=== PATIENT | female | born 2000 | race Asian ===

== ENCOUNTER 2020-06-28 16:59 | Inpatient (IN) | payer OTHER ==
[2020-06-28 17:53] VITALS: BMI 33.6
[2020-06-28 18:19] LABS: BASO % 0.5 % (0-2.0); EOS % 1.8 % (0-4.5); HEMATOCRIT 38.3 % (32.4-45.2); HEMOGLOBIN 13.2 GM/dL (10.7-15.3); LYMPH % 26.9 % (8-40); MCH 30.2 pg (25.7-33.7); MCHC 34.5 g/dl (32.0-36.0); MEAN CELL VOLUME 87.4 fl (80-96); MEAN PLT VOLUME 8.9 fl (7.5-11.1); MONO % 5.4 % (3.8-10.2); NEUT % 65.4 % (42.8-82.8); PLATELET COUNT 200 K/MM3 (134-434); RBC 4.38 M/mm3 (3.60-5.2); RDW 13.7 % (11.6-15.6); WHITE BLOOD COUNT 10.7 K/mm3 (4.0-10.0)
[2020-06-28 18:22] LABS: INR 1.01 (0.83-1.09); PROTHROMBIN TIME (PATIENT) 11.9 SEC (9.7-13.0)
[2020-06-28 18:49] LABS: BLOOD UREA NITROGEN 6.6 mg/dL (7-18); CALCIUM 8.8 mg/dL (8.5-10.1); CREATININE 0.5 mg/dL (0.55-1.3); POTASSIUM 3.5 mmol/L (3.5-5.1)
[2020-06-28] MEDS ORDERED: PROMETHAZINE HCL 25 MG/1 ML VIAL IVPUSH ONE (20:36)
[2020-06-28] MEDS ORDERED: BUTORPHANOL TARTRATE 1 MG/ML VIAL IVPB ONE (20:45)
--- NOTE | 2020-06-28 21:25 | HP ---
Past Medical History - Primary Care Physician PCP:: Dorcas Coronado - Admission Chief Complaint: Teen . 39 week. obesity. macrosomia History of Present Illness: 19 yo EDC 06/2020 admitted for induction of labor + AFM NO BLEEDING NO LAB OR History Source: Patient Limitations to Obtaining History: No Limitations - Past Medical History ...: 1 ...Para: 0 ...Term: 0 ...: 0 ...Spon : 0 ...Induced : 0 ...Living Children: 0 ...Multiple Gestation: 0 ...LMP: 09/22/19 ... Weeks Gestation by Dates: 40.0 ...EDC by Dates: 06/28/20 ...EDC by Sono: 06/28/20 - Past Surgical History Past Surgical History: Yes: None Hx Myomectomy: No Hx Transabdominal Cerclage: No - Smoking History Smoking history: Never smoked Have you smoked in the past 12 months: No Aproximately how many cigarettes per day: 0 - Alcohol/Substance Use Hx Alcohol Use: No History of Substance Use: reports: None - Social History History of Recent Travel: No Home Medications - Allergies Allergies/Adverse Reactions: Allergies Allergy/AdvReac Type Severity Reaction Status Date / Time No Known Allergies Allergy Verified 06/28/20 17:35 - Home Medications Home Medications: Ambulatory Orders Pnv No.95/Ferrous Fum/Folic AC [ Formula] 1 each PO DAILY 06/28/20 Review of Systems - Review of Systems Constitutional: reports: No Symptoms Eyes: reports: No Symptoms HENT: reports: No Symptoms Neck: reports: No Symptoms Cardiovascular: reports: No Symptoms Respiratory: reports: No Symptoms Gastrointestinal: reports: No Symptoms Genitourinary: reports: No Symptoms Breasts: reports: No Symptoms Reported Musculoskeletal: reports: No Symptoms Integumentary: reports: No Symptoms Neurological: reports: No Symptoms Endocrine: reports: No Symptoms Hematology/Lymphatic: reports: No Symptoms Psychiatric: reports: No Symptoms Physical Exam - Maternity Vital Signs: Vital Signs Temperature 98.2 F 06/28/20 17:44 Pulse Rate 82 06/28/20 19:00 Respiratory Rate 18 06/28/20 19:00 Blood Pressure 120/59 L 06/28/20 19:00 O2 Sat by Pulse Oximetry (%) 99 06/28/20 17:00 Constitutional: Yes: Well Nourished, No Distress Neck: Yes: WNL Cardiovascular: Yes: WNL Breast(s): Yes: WNL - Abdominal Exam/OB Fundal Height: 39 Number of Fetuses: Single Presentation: Vertex Contractions: No Monitor Mode: External Heart Rate Location: [facility] Category: I - Vaginal Exam/OB Speculum Exam: No Dilatation (cm): 1 Effacement (%): 80 Amniotic Membrane Status: Intact Presentation: Vertex/Position - Physical Exam Psychiatric: Yes: WNL, Alert, Oriented - Labs Lab Results: CBC, BMP 06/28/20 17:00 06/28/20 17:00 Hemorrhage Risk Assessment - Risk Factors Risk Score: 0 Risk Level: Low Risk Problem List - Problems (1) Obesity affecting Code(s): O99.210 - OBESITY COMPLICATING , UNSPECIFIED TRIMESTER (2) High risk teen in third trimester Code(s): O09.893 - SUPERVISION OF OTHER HIGH RISK PREGNANCIES, THIRD TRIMESTER (3) Macrosomia affecting management of mother in third trimester Code(s): O36.63X0 - MATERNAL CARE FOR EXCESS GROWTH, THIRD TRIMESTER, UNSP Qualifiers: Fetus number: single or unspecified fetus Qualified Code(s): O36.63X0 - Maternal care for excessive growth, third trimester, not applicable or unspecified Assessment/Plan IUP at 40 week teen cat 1 obesity Plan Cervidil placed
[2020-06-29] MEDS: ELECTROLYTE-148 SOLN 1,000 ML IV SCH (07:00)
[2020-06-29] MEDS ORDERED: OXYTOCIN 30 UNITS in 0.9% NS 30 UNIT/500 ML INFUS.BAG IVPB ONE (09:07)
--- NOTE | 2020-06-29 10:03 | PN ---
Ante-Partal Exam - Subjective Subjective: Pt with cramping with cervidil Vital Signs: Vital Signs Temperature 97.8 F 06/29/20 08:00 Pulse Rate 80 06/29/20 09:00 Respiratory Rate 18 06/29/20 09:00 Blood Pressure 116/51 L 06/29/20 09:00 O2 Sat by Pulse Oximetry (%) 99 06/28/20 17:00 Bleeding: No Headache: No Visual changes: No Right upper quadrant pain: No - Contractions Contractions: Yes Monitor Mode: External - Exam during Labor Variability: Moderate Heart Rate Location: [facility] Category: I Monitor Decelerations: None Exam: Vaginal Dilatation (cm): 2 Effacement (%): 80 Amniotic Membrane Status: Intact Presentation: Vertex Station: -1 - Intrapartum Hemorrhage Risk Risk Score: 0 Risk Level: Low Risk - Assessment/Plan Assessment/Plan: cervidil induction SV1 good casanova Pitocin augment
[2020-06-29] MEDS ORDERED: OXYTOCIN 30 UNITS in 0.9% NS 30 UNIT/500 ML INFUS.BAG IVPB SCH (10:15)
--- NOTE | 2020-06-29 10:23 | PN ---
Ante-Partal Exam - Subjective Vital Signs: Vital Signs Temperature 97.8 F 06/29/20 08:00 Pulse Rate 80 06/29/20 09:00 Respiratory Rate 18 06/29/20 09:00 Blood Pressure 116/51 L 06/29/20 09:00 O2 Sat by Pulse Oximetry (%) 99 06/28/20 17:00 - Contractions Contractions: Yes - Exam during Labor Variability: Moderate Heart Rate Location: [facility] Category: II Monitor Decelerations: Prolonged - Assessment/Plan Assessment/Plan: Cat 2 Prolonged Decel DC pitocin will observe and restart if cat 1
[2020-06-29] MEDS ORDERED: BUPIVACAINE HCL/PF 0.25% (2.5MG/ML) 10 ML VIAL ONE (17:30)
[2020-06-29] MEDS ORDERED: PCA PUMP NR ONE (17:50)
[2020-06-29] MEDS ORDERED: FENTANYL/BUPIVACAINE/NS/PF - PCEA - 50 ML DISP.SYRIN EP ONE (17:51)
[2020-06-29] MEDS ORDERED: NALOXONE HCL 0.4 MG/ML VIAL IVPUSH PRN (18:00)
[2020-06-29] MEDS ORDERED: FENTANYL/BUPIVACAINE/NS/PF - PCEA - 50 ML DISP.SYRIN EP SCH (18:00)
--- NOTE | 2020-06-29 20:47 | PN ---
Ante-Partal Exam - Subjective Vital Signs: Vital Signs Temperature 98.4 F 06/29/20 20:00 Pulse Rate 64 06/29/20 17:00 Respiratory Rate 18 06/29/20 17:00 Blood Pressure 121/66 06/29/20 17:00 O2 Sat by Pulse Oximetry (%) 99 06/28/20 17:00 - Exam during Labor Variability: Moderate Category: I Monitor Accelerations: Present Monitor Decelerations: None Exam: Vaginal Dilatation (cm): 2 Effacement (%): 70 Amniotic Membrane Status: Ruptured Amniotic Fluid: Clear Presentation: Vertex Station: -1 - Intrapartum Hemorrhage Risk Risk Score: 0 Risk Level: Low Risk - Assessment/Plan Assessment/Plan: Cat 1 Macrosomia Teen 40 week Plan pit may epidural
--- NOTE | 2020-06-29 20:52 | PN ---
Ante-Partal Exam - Subjective Subjective: Pt prolonged decel Pt Sp epidural Vital Signs: Vital Signs Temperature 98.4 F 06/29/20 20:00 Pulse Rate 64 06/29/20 17:00 Respiratory Rate 18 06/29/20 17:00 Blood Pressure 121/66 06/29/20 17:00 O2 Sat by Pulse Oximetry (%) 99 06/28/20 17:00 Bleeding: No Headache: No Visual changes: No Right upper quadrant pain: No - Contractions Intensity: Moderate Monitor Mode: External - Exam during Labor Heart Rate: 140 Variability: Moderate Heart Rate Location: [facility] Category: II Monitor Accelerations: Present Monitor Decelerations: Prolonged Exam: Vaginal Dilatation (cm): 2 Effacement (%): 70 Amniotic Membrane Status: Ruptured Amniotic Fluid: Clear Presentation: Vertex Station: -1 - Intrapartum Hemorrhage Risk Risk Score: 0 Risk Level: Low Risk - Assessment/Plan Assessment/Plan: CPD Cat 2 40 week teen obesity Plan Primary Section
[2020-06-29] MEDS ORDERED: ONDANSETRON 4 MG/2 ML VIAL IVPUSH PRN (22:35)
[2020-06-29] MEDS ORDERED: LIDO 2%/EPI 1:200000 PRESRVFRE (20 ML SDVIAL) ONE (23:17)
[2020-06-30] MEDS ORDERED: oxyCODONE HCL 5 MG TABLET PO PRN ×2 (00:20)
[2020-06-30] MEDS ORDERED: METHYLERGONOVINE MALEATE 0.2 MG/1 ML AMP IM PRN (00:20)
[2020-06-30] MEDS ORDERED: BENZOCAINE 20% 57 GM BOTTLE TP PRN (00:20)
[2020-06-30] MEDS ORDERED: SENNOSIDES/DOCUSATE COMBO (SENNA PLUS) TABLET (UD) PO PRN (00:20)
[2020-06-30] MEDS ORDERED: IBUPROFEN 800 MG/8 ML IJ IVPB PRN (00:20)
[2020-06-30] MEDS ORDERED: WITCH HAZEL 50% (TUCKS) 40 PAD/JAR PAD TP PRN (00:20)
--- NOTE | 2020-06-30 00:20 | OP ---
Operative Note - Note: Operative Date: 06/30/20 Pre-Operative Diagnosis: Falilure to progress. CPD. macrosomia. iup at 40 week Operation: Primary low transverse Section Findings: Live infant Post-Operative Diagnosis: Same as Pre-op Surgeon: Dorcas Coronado Assistant Fitness Manager: Apolinar Graham Anesthesia: Epidural Estimated Blood Loss (mls): 500 Operative Report Dictated: Yes
[2020-06-30 00:43] LABS: CORD HCO3 21.5 mmHg (20-29); CORD PCO2 55.3 mmHg (30-78); CORD pH 7.207 (7.14-7.44)
[2020-06-30 00:46] LABS: CORD HCO3 22.8 mmHg (20-29); CORD PCO2 50.7 mmHg (30-78); CORD pH 7.271 (7.14-7.44)
[2020-06-30] MEDS ORDERED: OXYTOCIN 20 UNITS in 0.9% NS 20 UNIT/1,000 ML INFUS.BAG IV ONE ×2 (02:02→10:31)
[2020-06-30] MEDS: OXYTOCIN 20 UNITS in 0.9% NS 20 UNIT/1,000 ML INFUS.BAG IV SCH (02:16)
--- NOTE | 2020-06-30 08:36 | PN ---
Progress Note (short form) - Note Progress Note: Anesthesia postop note 19 y/o F s/p spinal anesthesia/duramorph for section POD#1, vss, aaox3, pain well controlled, sensory motor intact distally No anesthesia complications.
[2020-06-30] MEDS: IBUPROFEN 600 MG TABLET (FP) PO PRN ×3 (08:50→21:59)
[2020-06-30] MEDS ORDERED: IBUPROFEN 600 MG TABLET (FP) PO ONE (09:47)
[2020-06-30] MEDS ORDERED: ACETAMINOPHEN 325 MG TABLET (FP) ONE (09:47)
[2020-06-30] MEDS ORDERED: PRENATAL VITAMINS W/ FOLIC ACID TABLET (FP) PO ONE (09:55)
[2020-06-30] MEDS ORDERED: FERROUS SO4 325 MG TABLET (FP) ONE (09:55)
[2020-06-30] MEDS: FERROUS SO4 325 MG TABLET (FP) PO SCH ×2 (09:57→21:59)
[2020-06-30] MEDS: PRENATAL VITAMINS W/ FOLIC ACID TABLET (FP) PO SCH (09:57)
[2020-06-30] MEDS: ACETAMINOPHEN 325 MG TABLET (FP) PO PRN ×3 (09:58→22:00)
[2020-06-30] MEDS: SIMETHICONE 80 MG TAB.CHEW (FP) PO PRN ×2 (14:41→21:59)
--- NOTE | 2020-06-30 16:38 | OP ---
DATE OF OPERATION: 06/29/2020 PREOPERATIVE DIAGNOSIS: Failure to progress, chronic kidney disease, and size greater than dates intrauterine at 40 weeks. OPERATION: Low transverse section. POSTOPERATIVE DIAGNOSIS: Live infant. SURGEON: Frankie Coronado MD. CANE CUTTER: DREA Navarro. MD unavailable. ANESTHESIA: Epidural. PROCEDURE: Patient was taken to the operating room, placed in supine position. Prepped and draped in usual sterile fashion. A Pfannenstiel skin incision was made with the patient's scar. Cautery was then used to go through layers of abdominal wall to the level of the fascia. Fascia was cut in the midline and cardia was then used to open the fascia in a smiley fashion. Levi was then used to bluntly and sharply dissect the rectus muscles off the fascia. Muscle was split in the midline. Peritoneal cavity was entered up and down with bladder retractor then placed. Vesicouterine reflexion then entered and bladder was bluntly dissected out of the upper field. Scalpel was then used to make a low transverse uterine incision. Incision was carried upwards with the use of bandage scissors. A live infant was delivered in OT position. Nose to mouth suction performed, shoulders were delivered without difficulty. Cord was clamped and cut. Cord blood obtained. . Placenta was manually extracted from uterus. Uterus exteriorized and cleaned with clean lap pads. Uterine incision then closed using 0 Vicryl suture, 1st layer continuous and locking, 2nd layer imbricating 1st layer. Hemostasis was achieved using [id number] sutures. Tubes and ovaries noted to be normal. Abdominal cavity was then cleaned with clean lap pads. Uterus interiorized. Abdominal sweep done. Peritoneum closed with 0 Biosyn suture in a continuous fashion. Muscles were approximated in the midline. Fascia then closed using 0 Vicryl suture in 2 parts. Subcutaneous was approximated using 0 Biosyn suture and interrupted sutures. Skin was then closed using 3-0 Vicryl in a subcuticular fashion. The wound was washed and dressed. Patient tolerated procedure well. Estimated blood loss 500 mL. FRANKIE CORONADO M.D. [id number]
[2020-06-30] MEDS: ELECTROLYTE-148 SOLN 1,000 ML IV SCH (17:11)
[2020-07-01] MEDS ORDERED: BISACODYL 10 MG SUPP.RECT RC PRN (00:20)
[2020-07-01] MEDS: OXYTOCIN 20 UNITS in 0.9% NS 20 UNIT/1,000 ML INFUS.BAG IV SCH (07:27)
[2020-07-01] MEDS: SIMETHICONE 80 MG TAB.CHEW (FP) PO PRN ×2 (08:08→16:09)
[2020-07-01] MEDS: IBUPROFEN 600 MG TABLET (FP) PO PRN ×2 (08:08→16:09)
[2020-07-01] MEDS: ACETAMINOPHEN 325 MG TABLET (FP) PO PRN ×2 (08:08→16:10)
[2020-07-01 08:33] LABS: BASO % 0.3 % (0-2.0); EOS % 1.2 % (0-4.5); HEMATOCRIT 37.8 % (32.4-45.2); HEMOGLOBIN 12.8 GM/dL (10.7-15.3); MCH 30.5 pg (25.7-33.7); MEAN CELL VOLUME 89.8 fl (80-96); MEAN PLT VOLUME 9.2 fl (7.5-11.1); MONO % 3.9 % (3.8-10.2); NEUT % 80.6 % (42.8-82.8); PLATELET COUNT 163 K/MM3 (134-434); RBC 4.21 M/mm3 (3.60-5.2); RDW 14.1 % (11.6-15.6); WHITE BLOOD COUNT 13.2 K/mm3 (4.0-10.0)
[2020-07-01] MEDS: PRENATAL VITAMINS W/ FOLIC ACID TABLET (FP) PO SCH (09:52)
[2020-07-01] MEDS: FERROUS SO4 325 MG TABLET (FP) PO SCH ×2 (09:52→22:09)
[2020-07-01] MEDS: ELECTROLYTE-148 SOLN 1,000 ML IV SCH (19:48)
[2020-07-02] MEDS: ACETAMINOPHEN 325 MG TABLET (FP) PO PRN ×2 (02:00→13:01)
[2020-07-02] MEDS: IBUPROFEN 600 MG TABLET (FP) PO PRN ×2 (02:00→13:02)
[2020-07-02] MEDS: SIMETHICONE 80 MG TAB.CHEW (FP) PO PRN ×2 (02:01→13:01)
--- NOTE | 2020-07-02 06:45 | DS ---
Physical Exam-COMMUNITY RELATIONS MANAGER Vital Signs: Vital Signs Temperature 98.5 F 07/01/20 21:09 Pulse Rate 83 07/01/20 21:09 Respiratory Rate 18 07/01/20 21:09 Blood Pressure 126/82 07/01/20 21:09 O2 Sat by Pulse Oximetry (%) 95 07/01/20 21:09 Constitutional: Yes: Well Nourished, No Distress Gastrointestinal: Yes: WNL ....Post : Yes: Uterus firm, Uterus non-tender Breast(s): Yes: WNL Musculoskeletal: Yes: WNL Extremities: Yes: WNL Wound/Incision: Yes: Clean/Dry, Well Approximated Labs: CBC, BMP 07/01/20 08:05 06/28/20 17:00 Delivery - Delivery Type of Anesthesia: Epidural Episiotomy/Laceration: None EBL (cc): 500 Delivery, Single - Stages of Labor Date 1st Stage Initiatied: 06/29/20 Time 1st Stage Initiated: 17:00 Date of Delivery: 06/29/20 Time of Delivery: 23:42 Time Placenta Delivered: 23:43 - Condition of Microbiology Technologist/Manager Product Management Present: Yes Name: Zuly Andrew Gender: Male Weight: 8 lb 2 oz Position: Left, OA Total Hours ROM (Hrs/Mins): 6H 42M - 1 Minute Total Score: 9 5 Minutes Total Score: 9 - Branch Feeding Plan Initial Plan: Elected not to breastfeed exclusively throughout hospitalization Discharge Summary Problems reviewed: Yes Reason For Visit: INDUCTION Current Active Problems High risk teen in third trimester (Acute) Macrosomia affecting management of mother in third trimester (Acute) Obesity affecting (Acute) Procedures: Principal: Low transverse section Hospital Course: unremarkable Condition: Good - Instructions Referrals: Dorcas Coronado MD [Staff Physician] - Disposition: HOME - Home Medications Comprehensive Discharge Medication List: Ambulatory Orders Pnv No.95/Ferrous Fum/Folic AC [ Formula] 1 each PO DAILY 06/28/20
[2020-07-02 09:26] VITALS: BP 130/78; PULSE 82; TEMP 98.2
[2020-07-02] MEDS: PRENATAL VITAMINS W/ FOLIC ACID TABLET (FP) PO SCH (09:50)
[2020-07-02] MEDS: FERROUS SO4 325 MG TABLET (FP) PO SCH (09:50)
--- NOTE | 2020-07-06 17:48 | PATH ---
Surgical Pathology Report Patient Name: PREET LAWSON Med. Rec. #: [id number] /Age/Gender: 2000 (Age: 19) / F Account: [id number] Location: [address] [place] [address] OBG/MANAGER METAL Taken: 06/29/2020 Received: 06/30/2020 Reported: 07/06/2020 Physicians: Dorcas Coronado M.D. Specimen(s) Received PLACENTA Clinical History 40 weeks gestation, failure to progress in labor, CPD Final Diagnosis PLACENTA: THIRD TRIMESTER PLACENTA WITH FOCAL INCREASED PERIVILLOUS FIBRIN DEPOSITION. TRIVASCULAR CORD. MEMBRANES WITH NO DIAGNOSTIC ABNORMALITIES. Electronically Signed Pramod Dozier M.D. Gross Description The specimen is received fresh labeled placenta and is a 400 gram, 17.0 x 17.0 x 2.5 cm. placenta with attached membranes and umbilical cord. The attached membranes are mazariegos, translucent with focal opacities and insert marginally. The umbilical cord measures 11 cm. in length and averages 1.2 cm. in diameter. The cord inserts eccentrically, 4 cm. to the nearest margin. No true knots or strictures are identified. Cut surface of the umbilical cord reveals 3 vessels. The surface is mcnulty-blue with minimal fibrin deposition and appropriate caliber vessels. The maternal surface is red-brown with focal defects. Sectioning reveals red-brown, spongy parenchyma. No lesions are identified. Family Sociologist sections are submitted in three cassettes as follows: 1- membrane rolls and umbilical cord; 2-3- full thickness sections of placenta. 07/04/2020 [facility]07/04/2020
== END 2020-07-02 14:30 | disposition home or self-care (01) | DRG 787 ==
LOC: JLDR 16:59 → J3N 06-30 11:21
PROVIDERS: ADMIT Obstetrics & Gynecology; ATTEND Obstetrics & Gynecology
PROC: 3E0P7VZ Introduction of Hormone into Female Reproductive, Via Natural or Artificial Opening (ICD-10-PCS; principal; 2020-06-28)
PROC: 10D00Z1 Extraction of Products of Conception, Low, Open Approach (ICD-10-PCS; 2020-06-29)
DX: O82 Encounter for cesarean delivery without indication (principal); O26.833 Pregnancy related renal disease, third trimester; O48.0 Post-term pregnancy; O76 Abnormality in fetal heart rate and rhythm complicating labor and delivery; Z3A.40 40 weeks gestation of pregnancy; O32.4XX0 Maternal care for high head at term, not applicable or unspecified; Z37.0 Single live birth; O99.214 Obesity complicating childbirth; E66.9 Obesity, unspecified; O66.2 Obstructed labor due to unusually large fetus; O09.893 Supervision of other high risk pregnancies, third trimester; N18.9 Chronic kidney disease, unspecified; Z87.09 Personal history of other diseases of the respiratory system
CPT/HCPCS: 36415; 36600; 80048; 82803; 85025; 85610; 85730; 86780; 86850; 86900; 86901; 88307-TC; U0003

== ENCOUNTER 2021-03-07 09:32 | Emergency (ER) | payer OTHER ==
[2021-03-07 09:44] VITALS: BP 132/81; PULSE 78; TEMP 98.5; BMI 25.6
[2021-03-07 12:22] LABS: CALCIUM 9.2 mg/dL (8.5-10.1)
[2021-03-07 12:23] LABS: ALBUMIN 3.8 g/dl (3.4-5.0); BLOOD UREA NITROGEN 8.6 mg/dL (7-18)
[2021-03-07 12:26] LABS: CREATININE 0.4 mg/dL (0.55-1.3)
[2021-03-07 12:27] LABS: BILIRUBIN,TOTAL 0.3 mg/dL (0.2-1)
[2021-03-07 12:28] LABS: TOT PROT 7.6 g/dl (6.4-8.2)
[2021-03-07 12:35] LABS: URINE APPEARANCE CLEAR; URINE BILIRUBIN NEGATIVE (NEGATIVE); URINE COLOR YELLOW; URINE GLUCOSE (UA) NEGATIVE (NEGATIVE); URINE KETONE NEGATIVE (NEGATIVE); URINE LEUK ESTERASE NEGATIVE (NEGATIVE); URINE NITRITE NEGATIVE (NEGATIVE); URINE PROTEIN NEGATIVE (NEGATIVE)
[2021-03-07 12:39] LABS: EPI CELLS 28 /uL (0-25.1); HYALINE CASTS 1 /uL (0-3.1); URINE BACTERIA 1604 /uL (0-1359); URINE RBC 7 /uL (0-23.9); URINE WBC 10 /uL (0-25.8)
[2021-03-07 12:45] LABS: BASO % 0.7 % (0-2.0); EOS % 3.1 % (0-4.5); HEMATOCRIT 38.5 % (32.4-45.2); LYMPH % 38.6 % (8-40); MCH 29.5 pg (25.7-33.7); MCHC 33.8 g/dl (32.0-36.0); MEAN CELL VOLUME 87.1 fl (80-96); MEAN PLT VOLUME 8.9 fl (7.5-11.1); MONO % 6.1 % (3.8-10.2); NEUT % 51.5 % (42.8-82.8); PLATELET COUNT 317 K/MM3 (134-434); RBC 4.42 M/mm3 (3.60-5.2); RDW 13.7 % (11.6-15.6); WHITE BLOOD COUNT 9.4 K/mm3 (4.0-10.0)
== END 2021-03-07 13:30 | disposition home or self-care (01) ==
LOC: JER 09:32
DX: O20.0 Threatened abortion (principal)
CPT/HCPCS: 36415; 76817-TC; 80053; 81003; 84702; 85025; 86850; 86900; 86901; 87086; 99284-25

== ENCOUNTER 2021-06-10 18:12 | Emergency (ER) | payer OTHER ==
[2021-06-10 18:49] VITALS: TEMP 97.9; BMI 26.5
[2021-06-10 19:31] LABS: PH,URINE 7.5 (5.0-8.0); URINE APPEARANCE CLEAR; URINE BILIRUBIN NEGATIVE (NEGATIVE); URINE COLOR YELLOW; URINE GLUCOSE (UA) NEGATIVE (NEGATIVE); URINE KETONE NEGATIVE (NEGATIVE); URINE LEUK ESTERASE NEGATIVE (NEGATIVE); URINE NITRITE NEGATIVE (NEGATIVE); URINE PROTEIN NEGATIVE (NEGATIVE); URINE UROBILINOGEN 0.2 mg/dL (0.2-1.0)
[2021-06-10 20:01] LABS: BASO % 0.5 % (0-2.0); EOS % 3.3 % (0-4.5); HEMOGLOBIN 12.8 GM/dL (10.7-15.3); LYMPH % 35.2 % (8-40); MCH 29.6 pg (25.7-33.7); MCHC 34.6 g/dl (32.0-36.0); MEAN CELL VOLUME 85.4 fl (80-96); PLATELET COUNT 256 10^3/uL (134-434); RBC 4.33 M/mm3 (3.60-5.2); RDW 14.5 % (11.6-15.6); WHITE BLOOD COUNT 11.5 K/mm3 (4.0-10.0)
[2021-06-10 20:34] LABS: ALBUMIN 3.1 g/dl (3.4-5.0); CALCIUM 8.6 mg/dL (8.5-10.1)
[2021-06-10 20:35] LABS: BLOOD UREA NITROGEN 6.8 mg/dL (7-18)
[2021-06-10 20:38] LABS: CREATININE 0.4 mg/dL (0.55-1.3)
[2021-06-10 20:39] LABS: BILIRUBIN,TOTAL 0.1 mg/dL (0.2-1); TOT PROT 6.9 g/dl (6.4-8.2)
[2021-06-10 22:48] VITALS: BP 110/73; PULSE 72
== END 2021-06-10 22:51 | disposition home or self-care (01) ==
LOC: JER 18:12
DX: O26.852 Spotting complicating pregnancy, second trimester (principal); Z3A.19 19 weeks gestation of pregnancy
CPT/HCPCS: 36415; 76815; 80053; 81003; 85025; 86850; 86900; 86901; 87086; 99284-25

== ENCOUNTER 2021-07-02 09:54 | Emergency (ER) | payer OTHER ==
[2021-07-02 10:00] VITALS: BP 124/72; PULSE 105; TEMP 97; BMI 28.0
== END 2021-07-02 11:41 | disposition home or self-care (01) ==
LOC: JER 09:54 → JERFT 09:54
PROC: 0H98XZZ Drainage of Buttock Skin, External Approach (ICD-10-PCS; principal; 2021-07-02)
DX: L02.31 Cutaneous abscess of buttock (principal)
CPT/HCPCS: 76815; 99283-25

== ENCOUNTER 2023-06-19 12:13 | Emergency (ER) | payer OTHER ==
[2023-06-19 12:24] VITALS: BP 114/68; RESP 17; BMI 31.8
[2023-06-19 13:40] LABS: BASO % 0.6 % (0-2.0); EOS % 3.7 % (0-4.5); HEMATOCRIT 37.2 % (32.4-45.2); HEMOGLOBIN 12.5 GM/dL (10.7-15.3); LYMPH % 31.2 % (8-40); MCH 27.8 pg (25.7-33.7); MCHC 33.6 g/dl (32.0-36.0); MEAN CELL VOLUME 82.8 fl (80-96); MEAN PLT VOLUME 7.7 fl (7.5-11.1); MONO % 6.8 % (3.8-10.2); NEUT % 57.7 % (42.8-82.8); PLATELET COUNT 303 10^3/uL (134-434); RBC 4.49 M/mm3 (3.60-5.2); RDW 14.6 % (11.6-15.6); WHITE BLOOD COUNT 10.3 K/mm3 (4.0-10.0)
[2023-06-19 14:06] LABS: POTASSIUM 4.3 mmol/L (3.5-5.1)
[2023-06-19 14:07] LABS: CALCIUM 8.8 mg/dL (8.5-10.1)
[2023-06-19 14:08] LABS: ALBUMIN 3.4 g/dl (3.4-5.0); BLOOD UREA NITROGEN 8.3 mg/dL (7-18)
[2023-06-19 14:10] LABS: CREATININE 0.4 mg/dL (0.55-1.3)
[2023-06-19 14:12] LABS: BILIRUBIN,TOTAL 0.1 mg/dL (0.2-1)
[2023-06-19 14:13] LABS: TOT PROT 6.7 g/dl (6.4-8.2)
[2023-06-19 14:21] LABS: EPI CELLS 13 /uL (0-25.1); HYALINE CASTS 0 /uL (0-3.1); URINE APPEARANCE CLOUDY; URINE BACTERIA 321 /uL (0-1359); URINE BILIRUBIN NEGATIVE (NEGATIVE); URINE COLOR YELLOW; URINE GLUCOSE (UA) NEGATIVE (NEGATIVE); URINE KETONE NEGATIVE (NEGATIVE); URINE LEUK ESTERASE NEGATIVE (NEGATIVE); URINE NITRITE NEGATIVE (NEGATIVE); URINE PROTEIN NEGATIVE (NEGATIVE); URINE RBC 19 /uL (0-23.9); URINE UROBILINOGEN 0.2 mg/dL (0.2-1.0); URINE WBC 6 /uL (0-25.8)
[2023-06-19 17:27] VITALS: PULSE 77; TEMP 98.2
== END 2023-06-19 20:27 | disposition home or self-care (01) ==
LOC: JER 12:13
DX: O20.9 Hemorrhage in early pregnancy, unspecified (principal); O26.891 Other specified pregnancy related conditions, first trimester; R10.30 Lower abdominal pain, unspecified; Z3A.08 8 weeks gestation of pregnancy
CPT/HCPCS: 36415; 76817-TC; 80053; 81003; 84702; 85025; 86850; 86900; 86901; 87086; 99284-25

== ENCOUNTER 2024-01-16 06:31 | Inpatient (IN) | payer OTHER ==
[2024-01-16] MEDS: CITRIC ACID/SODIUM CITRATE 30 ML UNIT-DOSE CUP PO ONE (07:00)
[2024-01-16] MEDS: ELECTROLYTE-148 SOLN 1,000 ML IV ONE (07:15)
[2024-01-16] MEDS ORDERED: IBUPROFEN 800 MG/8 ML IJ IVPB PRN (07:23)
[2024-01-16] MEDS ORDERED: METHYLERGONOVINE MALEATE 0.2 MG/1 ML AMP IM PRN (07:23)
[2024-01-16 07:49] VITALS: BMI 40.9
[2024-01-16] MEDS ORDERED: morphine SULFATE/PF 1 MG/2 ML (2cc Syringe - QUVA) ONE (08:10)
[2024-01-16] MEDS ORDERED: FENTANYL CITRATE/PF 50 MCG/ML VIAL ONE (08:11)
[2024-01-16] MEDS ORDERED: KETOROLAC TROMETHAMINE 30 MG/1 ML VIAL ONE (08:51)
[2024-01-16] MEDS ORDERED: ONDANSETRON 4 MG/2 ML VIAL ONE (08:51)
[2024-01-16] MEDS ORDERED: ceFAZolin SODIUM 1 GM VIAL ONE (08:51)
[2024-01-16] MEDS ORDERED: OXYTOCIN 10 UNITS/ML VIAL ONE (08:51)
[2024-01-16 09:48] LABS: CORD BASE EXCESS -2.8 mmol/L (0-2); CORD HCO3 23.6 mmHg (20-29); CORD PCO2 46.4 mmHg (30-78); CORD pH 7.324 (7.14-7.44)
[2024-01-16] MEDS ORDERED: ONDANSETRON 4 MG/2 ML VIAL IVPUSH PRN (09:54)
[2024-01-16 09:55] LABS: CORD BASE EXCESS -5.6 mmol/L (0-2); CORD HCO3 19.9 mmHg (20-29); CORD PCO2 39.1 mmHg (30-78); CORD pH 7.324 (7.14-7.44)
[2024-01-16] MEDS: ACETAMINOPHEN 1000 MG/100 ML BAG IVPB ONE (10:00)
[2024-01-16] MEDS ORDERED: OXYTOCIN 20 UNITS in 0.9% NS 20 UNIT/1,000 ML INFUS.BAG IV ONE (10:03)
[2024-01-16] MEDS: FERROUS SO4 325 MG TABLET (FP) PO SCH (10:20)
[2024-01-16] MEDS: OXYTOCIN 20 UNITS in 0.9% NS 20 UNIT/1,000 ML INFUS.BAG IV SCH (11:35)
[2024-01-16] MEDS: PRENATAL VITAMINS W/ FOLIC ACID TABLET (FP) PO SCH (14:32)
[2024-01-16] MEDS ORDERED: oxyCODONE HCL 5 MG TABLET PO PRN ×2 (19:23)
[2024-01-16] MEDS: ELECTROLYTE-148 SOLN 1,000 ML IV SCH ×2 (19:48→19:49)
[2024-01-16] MEDS: morphine SULFATE/PF 1 MG/2 ML (2cc Syringe - QUVA) SPIN ONE (19:49)
[2024-01-17] MEDS: IBUPROFEN 600 MG TABLET (FP) PO PRN (05:51)
[2024-01-17] MEDS: SIMETHICONE 80 MG TAB.CHEW (FP) PO PRN (05:51)
[2024-01-17] MEDS ORDERED: BISACODYL 10 MG SUPP.RECT RC PRN (07:23)
[2024-01-17 08:52] LABS: BASO % 0.5 % (0-2.0); EOS % 3.9 % (0-4.5); HEMATOCRIT 35.3 % (32.4-45.2); HEMOGLOBIN 11.7 GM/dL (10.7-15.3); LYMPH % 16.5 % (8-40); MCH 27.1 pg (25.7-33.7); MCHC 33.2 g/dl (32.0-36.0); MEAN CELL VOLUME 81.6 fl (80-96); MEAN PLT VOLUME 8.1 fl (7.5-11.1); MONO % 5.2 % (3.8-10.2); NEUT % 73.9 % (42.8-82.8); PLATELET COUNT 248 10^3/uL (134-434); RBC 4.32 M/mm3 (3.60-5.2); RDW 15.4 % (11.6-15.6); WHITE BLOOD COUNT 10.8 K/mm3 (4.0-10.0)
[2024-01-18] MEDS: ACETAMINOPHEN 325 MG TABLET (FP) PO PRN (09:08)
[2024-01-19 01:04] VITALS: RESP 18
[2024-01-19 06:24] LABS: BASO % 0.7 % (0-2.0); EOS % 8.1 % (0-4.5); HEMATOCRIT 34.1 % (32.4-45.2); HEMOGLOBIN 11.3 GM/dL (10.7-15.3); LYMPH % 27.3 % (8-40); MCH 27.4 pg (25.7-33.7); MCHC 33.1 g/dl (32.0-36.0); MEAN CELL VOLUME 82.7 fl (80-96); MEAN PLT VOLUME 7.3 fl (7.5-11.1); MONO % 5.3 % (3.8-10.2); NEUT % 58.6 % (42.8-82.8); PLATELET COUNT 260 10^3/uL (134-434); RBC 4.13 M/mm3 (3.60-5.2); RDW 15.3 % (11.6-15.6); WHITE BLOOD COUNT 10.4 K/mm3 (4.0-10.0)
[2024-01-19 08:32] VITALS: BP 134/91; PULSE 76; TEMP 98.2
== END 2024-01-19 12:00 | disposition home or self-care (01) | DRG 788 ==
LOC: JLDR 06:31 → J3W 14:05
PROVIDERS: ADMIT Obstetrics & Gynecology; ATTEND Obstetrics & Gynecology
PROC: 10D00Z1 Extraction of Products of Conception, Low, Open Approach (ICD-10-PCS; principal; 2024-01-16)
DX: O34.211 Maternal care for low transverse scar from previous cesarean delivery (principal); N85.8 Other specified noninflammatory disorders of uterus; O99.214 Obesity complicating childbirth; Z3A.39 39 weeks gestation of pregnancy; Z37.0 Single live birth
CPT/HCPCS: 36415; 36600; 82803; 85025; 88307-TC; 94010; J0131